=== PATIENT | male | born 1970 | race Caucasian/White ===

== ENCOUNTER 2017-12-07 15:42 | Emergency (ER) | payer OTHER ==
[~2017-12-07] VITALS: Ht 172.7 cm; Wt 88.5 kg
[2017-12-07] MEDS ORDERED: HYDROXYZINE HCL25 M1 PO (15:55)
[2017-12-07] MEDS ORDERED: PRISTIQ50 MG PO (16:02)
[2017-12-07 16:29] LABS: INFLUENZA A ANTIGEN None Detected (None Detect); INFLUENZA B ANTIGEN None Detected (None Detect)
[2017-12-07] MEDS ORDERED: PREDNISONE 20 M20 M1 PO (16:43)
[2017-12-07] MEDS ORDERED: BENZONATATE200 MG PO (16:43)
[2017-12-07 16:45] VITALS: BP 145/72
== END 2017-12-07 16:45 | disposition home or self-care (01) ==
LOC: M.ERS 15:42
PROVIDERS: Nurse Practitioner Family
DX: J20.8 Acute bronchitis due to other specified organisms (principal); F32.9 Major depressive disorder, single episode, unspecified; F41.9 Anxiety disorder, unspecified; Z90.89 Acquired absence of other organs

== ENCOUNTER 2017-12-14 15:43 | Emergency (ER) | payer OTHER ==
[~2017-12-14] VITALS: Ht 172.7 cm; Wt 88.5 kg
[~2017-12-14 15:43] MED LIST: BENZONATATE200 MG PO; HYDROXYZINE HCL25 M1 PO; PREDNISONE 20 M20 M1 PO; PRISTIQ50 MG PO
[2017-12-14] MEDS ORDERED: VENTOLIN HFA 1818 GM INH (17:50)
[2017-12-14] MEDS ORDERED: AUGMENTIN 875-1 EACH PO (17:50)
[2017-12-14] MEDS ORDERED: TESSALON PERLE100 MG PO (17:50)
[2017-12-14 18:05] VITALS: BP 121/83
== END 2017-12-14 18:08 | disposition home or self-care (01) ==
LOC: M.ERS 15:43
DX: J01.90 Acute sinusitis, unspecified (principal); B96.89 Other specified bacterial agents as the cause of diseases classified elsewhere; F32.9 Major depressive disorder, single episode, unspecified; F41.9 Anxiety disorder, unspecified; Z87.891 Personal history of nicotine dependence

== ENCOUNTER 2019-12-20 09:32 | Emergency (ER) | payer OTHER ==
[~2019-12-20] VITALS: Ht 172.7 cm; Wt 83.9 kg
[~2019-12-20 09:32] MED LIST changes: +AUGMENTIN 875-1 EACH PO; +TESSALON PERLE100 MG PO; +VENTOLIN HFA 1818 GM INH
[2019-12-20] MEDS ORDERED: CELEXA 10 MG TA10 M1 PO (09:41)
[2019-12-20] MEDS ORDERED: AMOXICILLIN125 M1 PO (09:42)
[2019-12-20] MEDS ORDERED: BACTRIM DS TAB1 EACH PO (10:24)
[2019-12-20] MEDS ORDERED: NORCO 5-325 TA1 EAC1 PO (10:24)
[2019-12-20 11:01] VITALS: BP 120/80
== END 2019-12-20 11:02 | disposition home or self-care (01) ==
LOC: M.ERS 09:32
DX: L03.012 Cellulitis of left finger (principal); Z87.891 Personal history of nicotine dependence